=== PATIENT | male | born 1950 | race Caucasian/White ===

== ENCOUNTER 2022-03-21 00:49 | Day surgery (SDC) | payer MEDICARE, SELFPAY ==
[2022-03-14 14:33] VITALS: BMI 22.8
[2022-03-21 09:11] VITALS: BP 148/94; PULSE 90; RESP 16; TEMP 36.6; O2SAT 99
[2022-03-21] MEDS: LACTATED RINGERS 1,000 ML 150 ML IV CONT (09:21)
--- NOTE | 2022-03-21 09:24 | WPDANESEPPF ---
Anes - Initial Pre Proc Eval Procedure: Operation Date: 03/21/22 10:00 Proposed Procedures p Screening Colonoscopy - Mason Pryor MD Date/Time: 03/21/22 09:24 Surgeon: Mason Pryor MD Pre Op Diagnosis: hx of colon ca Patient Data Age: 72 Gender: M Height: 1.73 m Weight: 66.7 kg Last Vital Signs Temp 36.6 C 03/21/22 09:11 Pulse 90 03/21/22 09:11 Resp 16 03/21/22 09:11 BP 148/94 H 03/21/22 09:11 Pulse Ox 99 03/21/22 09:11 O2 Del Method Room Air 03/21/22 09:11 Allergies Allergy/AdvReac Type Severity Reaction Status Date / Time Contrast Media Allergy Severe RASH Uncoded 03/21/22 09:10 MRI CONTRAST Allergy Severe Rash Uncoded 03/21/22 09:10 Home Medications Medication Instructions Recorded Confirmed Type amlodipine 5 mg tablet 1 tablet PO DAILY 03/14/22 03/14/22 History apixaban 5 mg tablet (Eliquis) 1 tablet PO BID 03/14/22 03/14/22 History atorvastatin 20 mg tablet 1 tablet PO DAILY 03/14/22 03/14/22 History lisinopril 10 mg tablet 1 tablet PO DAILY 03/14/22 03/14/22 History omeprazole 20 mg capsule,delayed 1 cap PO DAILY 03/14/22 03/14/22 History release sildenafil (pulm.hypertension) 20 1 tablet PO PRN PRN Sexual Activity 03/14/22 03/14/22 History mg tablet tamsulosin 0.4 mg capsule 1 cap PO DAILY 03/14/22 03/14/22 History Patient hx anesthesia problems: none Family hx anesthesia problems: none Results Review: All pre-operative results and documents have been reviewed as part of the pre-operative evaluation. [facility] Past Medical History Medical History (Updated 03/21/22 @ 07:21 by Jorge Rodriguez DO) DVT (deep venous thrombosis) History of colorectal cancer Hyperlipidemia Hypertension Pulmonary embolism Surgical History Surgical History (Updated 03/21/22 @ 07:21 by Jorge Rodriguez DO) History of appendectomy History of cholecystectomy Social History Social History Smoking status: Never smoker Alcohol intake: current Drinks per week: 3 Alcohol use details: BEERS Substance use: never Substance use type: does not use Living arrangements: with family Spiritual care concerns: No Anes - Eval Final PreProcedure Day of Procedure 03/21/22 09:24 Patient weight: normal Heart: regular rate and rhythm Lungs: clear to auscultation Airway: Mallampati scale class II Neurological: alert and oriented Last oral intake: >/= 8 hours ASA classification: III Emergent: no Anesthetic plan: proceed Anesthesia type and monitoring: general GIVS and standard monitoring Results Review: All pre-operative results and documents have been reviewed as part of the pre-operative evaluation. Informed Consent: The patient's anesthetic plan and its attendant risks and benefits were discussed with the patient/family/POA. Questions were solicited and answers provided to the satisfaction of the patient/family/POA.
--- NOTE | 2022-03-21 09:37 | PM.IMHP ---
H&P: HPI History of Present Illness Date/Time: 03/21/22 09:37 Chief Complaint: History of colon cancer. Narrative: This is a 72-year-old white male patient with a history of colon cancer resected 25 years ago. Presents today for screening colonoscopy. Family history is significant that his mother also had colon cancer. Patient states his current bowel habits are normal denies abdominal pain. He has had no bleeding. Family history as stated. Review of Systems Review of Systems: Review of systems noncontributory. [facility] Past Medical History Medical History (Updated 03/21/22 @ 09:39 by Mason Pryor MD) DVT (deep venous thrombosis) History of colorectal cancer Hyperlipidemia Hypertension Pulmonary embolism Surgical History Surgical History (Updated 03/21/22 @ 07:21 by Jorge Rodriguez DO) History of appendectomy History of cholecystectomy Social History Social History Smoking status: Never smoker Alcohol intake: current Drinks per week: 3 Alcohol use details: BEERS Substance use: never Substance use type: does not use Living arrangements: with family Spiritual care concerns: No Meds Home Medications and Allergies Home Medications Medication Instructions Recorded Confirmed Type amlodipine 5 mg tablet 1 tablet PO DAILY 03/14/22 03/14/22 History apixaban 5 mg tablet (Eliquis) 1 tablet PO BID 03/14/22 03/14/22 History atorvastatin 20 mg tablet 1 tablet PO DAILY 03/14/22 03/14/22 History lisinopril 10 mg tablet 1 tablet PO DAILY 03/14/22 03/14/22 History omeprazole 20 mg capsule,delayed 1 cap PO DAILY 03/14/22 03/14/22 History release sildenafil (pulm.hypertension) 20 1 tablet PO PRN PRN Sexual Activity 03/14/22 03/14/22 History mg tablet tamsulosin 0.4 mg capsule 1 cap PO DAILY 03/14/22 03/14/22 History Allergies Allergy/AdvReac Type Severity Reaction Status Date / Time Contrast Media Allergy Severe RASH Uncoded 03/21/22 09:10 MRI CONTRAST Allergy Severe Rash Uncoded 03/21/22 09:10 Vital Signs Vital Signs - 24 hr 03/21/22 09:11 Temperature 97.9 F Pulse Rate 90 Respiratory Rate 16 Blood Pressure 148/94 H Pulse Oximetry 99 Oxygen Delivery Room Air Exam Narrative: Physical exam reveals patient be alert. Vital signs stable. HEENT exam is unremarkable. Patient is anicteric. Lungs are clear to auscultation and percussion. Heart is without murmur or extra sounds. Abdomen bowel sounds present soft nontender with no organomegaly. Digital external rectal exam is normal. Assessment and Plan Assessment and plan (1) Family history of colon cancer in mother: Code(s): Z80.0 - Family history of malignant neoplasm of digestive organs Status: Acute (2) History of colon cancer: Code(s): Z85.038 - Personal history of other malignant neoplasm of large intestine Status: Acute Assessment and Plan: Patient has a history of colon cancer resected 25 years ago additionally his mother had colon cancer. Genetic testing has been unable to find a specific trait. Continue surveillance the 3-5 year intervals in the future advised.
[2022-03-21 10:04] VITALS: BP 95/69; PULSE 81; RESP 18; O2SAT 96
[2022-03-21 10:14] VITALS: BP 118/84; PULSE 68; RESP 16; O2SAT 100
[2022-03-21 10:24] VITALS: BP 139/88; PULSE 67; RESP 15; O2SAT 98
== END 2022-03-21 10:27 | disposition home or self-care (01) ==
PROVIDERS: PCP Family Medicine; Visit Provider Internal Medicine Gastroenterology
PROC: 0DJD8ZZ Inspection of Lower Intestinal Tract, Via Natural or Artificial Opening Endoscopic (ICD-10-PCS; CPT 45378; principal; 2022-03-21 10:00)
DX: Z12.11 Encounter for screening for malignant neoplasm of colon (principal); Z80.0 Family history of malignant neoplasm of digestive organs; Z98.0 Intestinal bypass and anastomosis status; K64.8 Other hemorrhoids; K57.30 Diverticulosis of large intestine without perforation or abscess without bleeding; Z85.038 Personal history of other malignant neoplasm of large intestine; Z86.718 Personal history of other venous thrombosis and embolism; I10 Essential (primary) hypertension; E78.5 Hyperlipidemia, unspecified; I26.99 Other pulmonary embolism without acute cor pulmonale; Z79.01 Long term (current) use of anticoagulants
CPT/HCPCS: G0105; J2704; J7120